=== PATIENT | female | born 2000 | race Caucasian/White ===

== ENCOUNTER → 2024-03-17 09:23 | Outpatient (REF) | payer OTHER, SELFPAY ==
[2024-03-19 07:35] LABS: Quantiferon Mitogen minus NIL 9.97 IU/mL; Quantiferon NIL 0.03 IU/mL; Quantiferon Plus TB1 minus NIL 0.05 IU/mL (<=0.34); Quantiferon Plus TB2 minus NIL 0.04 IU/mL (<=0.34); Quantiferon TB Gold Plus Negative (Negative)
== END ==
LOC: OHS 09:23
PROVIDERS: ATTENDING PHYSICIAN Nurse Practitioner Family
DX: Z23 Encounter for immunization (principal)
CPT/HCPCS: 36415; 86480